=== PATIENT | female | born 1945 | race Caucasian/White ===

== ENCOUNTER 2016-10-16 17:46 | Emergency (ER) | payer MEDICARE, OTHER ==
[~2016-10-16 17:46] MED LIST: AGGRENOX1 CAP PO; AMIODARONE HCL200 MG PO; ASPIR-LOW81 MG PO; AUGMENTIN500 MG PO; AUGMENTIN875 MG PO; CELEXA20 MG PO; CENTRUM SILVER1 TA PO; CITRACAL + D C1 EACH PO; CITRACAL PLUS1 EACH PO; COUMADIN5 MG PO; FEM RING; FISH OIL 1,0001 CA PO; FISH OIL1 CAP PO; LOPRESSOR25 MG/TA1 PO; NAMENDA10 MG PO; NORCO 5/325 TAB1 TAB PO; OMEPRAZOLE20 M2 PO; PATANOL5 ML OP; PRILOSEC20 MG PO; PROBIOTIC1 EACH PO; STOOL SOFTENER100 M1 PO; SYSTANE 0.3-0.4%5 ML OP; THERA TEARS PO; TRICOR145 M1 PO; VITAMIN D50000 UNIT PO; VITAMIN E COMP1 EACH PO; VITAMIN E400 UNIT PO; ZINC PO; ZOCOR10 MG PO; ZYRTEC PO; ZYRTEC10 M1 PO; ZYRTEC10 MG PO; [UNRECOGNIZED DRUG - CODE] PO; [UNRECOGNIZED DRUG - OTHER] OP
== END 2016-10-16 20:10 ==
LOC: EDMED 17:46
DX: S09.90XA Unspecified injury of head, initial encounter (principal); F03.90 Unspecified dementia, unspecified severity, without behavioral disturbance, psychotic disturbance, mood disturbance, and anxiety; I48.91 Unspecified atrial fibrillation; E11.9 Type 2 diabetes mellitus without complications; E78.5 Hyperlipidemia, unspecified; Z86.73 Personal history of transient ischemic attack (TIA), and cerebral infarction without residual deficits; Z79.4 Long term (current) use of insulin; Z79.82 Long term (current) use of aspirin; Z79.899 Other long term (current) drug therapy; Z79.01 Long term (current) use of anticoagulants; W18.30XA Fall on same level, unspecified, initial encounter; Y92.019 Unspecified place in single-family (private) house as the place of occurrence of the external cause